=== PATIENT | female | born 1930 | race Caucasian/White ===

== ENCOUNTER 2017-12-22 16:24 | Inpatient (IN) | payer OTHER ==
[~2017-12-22] VITALS: Ht 149.9 cm; Wt 43.9 kg
[~2017-12-22 16:24] MED LIST: ACEBUTOLOL HCL400 MG PO; DITROPAN5 MG PO; LIPITOR10 MG PO; PAXIL10 MG PO; PRINIVIL10 MG PO
[2017-12-22 16:50] LABS: BASOPHIL (%) 0.8 % (0-1); BASOPHIL COUNT 0.1 K/uL (0-0.1); EOSINOPHIL (%) 2.2 % (0-5); EOSINOPHIL COUNT 0.2 K/uL (0-0.3); HEMATOCRIT 40.7 % (36.0-46.0); HEMOGLOBIN 13.4 G/DL (11.9-15.5); IMMATURE GRANULOCYTE (%) 0.2 % (0.0-0.7); LYMPHOCYTE (%) 30.6 % (15-42); LYMPHOCYTE COUNT 2.9 K/uL (1.0-2.8); MCH 30.6 PG (29.0-34.0); MCHC 32.9 G/DL (30.0-36.0); MCV 92.9 FL (83-99); MONOCYTE (%) 7.9 % (3-12); MONOCYTE COUNT 0.8 K/uL (0-0.8); NEUTROPHIL (%) 58.3 % (45-76); NEUTROPHIL COUNT 5.5 K/uL (1.8-6.4); PLATELET COUNT 214 K/uL (156-360); RBC DIS.WIDTH-CV 11.6 % (11.8-14.6); RBC DIS.WIDTH-SD 39.7 % (39-53); RED BLOOD COUNT 4.38 M/uL (3.80-5.20); WHITE BLOOD COUNT 9.5 K/uL (4.1-10.2)
[2017-12-22 16:56] LABS: INTER. NORMALIZED RATIO 1.1
[2017-12-22 17:03] LABS: CHLORIDE 104 mEq/L (99-109); POTASSIUM 3.6 mEq/L (3.7-5.4); SODIUM 141 mEq/L (136-147)
[2017-12-22 17:05] LABS: GLUCOSE 140 mg/dL (70-99)
[2017-12-22 17:09] LABS: GFR ESTIMATE (CALCULATED) 55 mL/min/
[2017-12-22 17:10] LABS: UREA NITROGEN (BUN) 14 mg/dL (9-23)
[2017-12-22] MEDS ORDERED: ADVIL,NUPRIN,M200 MG PO (17:28)
[2017-12-22] MEDS ORDERED: AMLODIPINE BES2.5 MG PO (17:29)
[2017-12-22] MEDS ORDERED: ARICEPT5 MG PO (17:29)
[2017-12-22] MEDS ORDERED: CYANOCOBALAM1000 MCG PO (17:29)
[2017-12-22] MEDS ORDERED: VITAMIN D31000 UNIT PO (17:29)
[2017-12-22] MEDS ORDERED: IRON325 M1 PO (17:29)
[2017-12-22] MEDS ORDERED: XANAX0.25 MG PO (17:29)
[2017-12-22 22:47] VITALS: BP 138/76
[2017-12-23 05:01] VITALS: BP 122/63
[2017-12-23 08:00] VITALS: BP 103/53
[2017-12-23 09:04] VITALS: BP 148/60
[2017-12-23 09:18] VITALS: BP 160/92
[2017-12-23 13:58] LABS: HEMATOCRIT 29.3 % (36.0-46.0); MCH 29.5 PG (29.0-34.0); MCHC 32.1 G/DL (30.0-36.0); MCV 91.8 FL (83-99); PLATELET COUNT 177 K/uL (156-360); RBC DIS.WIDTH-CV 11.8 % (11.8-14.6); RBC DIS.WIDTH-SD 39.8 % (39-53); WHITE BLOOD COUNT 14.3 K/uL (4.1-10.2)
[2017-12-23 13:59] LABS: HEMOGLOBIN 9.4 G/DL (11.9-15.5); RED BLOOD COUNT 3.19 M/uL (3.80-5.20)
[2017-12-23 14:10] LABS: ALBUMIN 3.2 G/DL (3.2-4.8); ALKALINE PHOSPHATASE 47 IU/L (3-129); ALT (GPT) 10 IU/L (3-49); AST (GOT) 21 IU/L (2-34); CHLORIDE 104 MEQ/L (99-109); CREATININE 0.8 MG/DL (0.6-1.3); GFR ESTIMATE (CALCULATED) > 59 mL/min/; GLUCOSE 160 mg/dL (70-99); POTASSIUM 3.9 MEQ/L (3.7-5.4); SODIUM 137 MEQ/L (136-147); TOTAL BILIRUBIN 0.4 MG/DL (0.0-1.0); TOTAL PROTEIN 5.7 G/DL (6.4-8.3); UREA NITROGEN (BUN) 21 mg/dL (9-23)
[2017-12-23 19:41] VITALS: BP 129/54
[2017-12-23 23:34] VITALS: BP 125/56
[2017-12-24 04:29] VITALS: BP 138/58
[2017-12-24 09:02] VITALS: BP 115/56
[2017-12-24 11:49] VITALS: BP 147/63
[2017-12-24 15:07] VITALS: BP 152/57
[2017-12-24 23:20] VITALS: BP 135/58
[2017-12-25] VITALS (12 sets, daily range): BP systolic 11–141; BP diastolic 39–105
[2017-12-25 07:07] LABS: BASOPHIL (%) 0.6 % (0-1); BASOPHIL COUNT 0.1 K/uL (0-0.1); EOSINOPHIL (%) 1.3 % (0-5); EOSINOPHIL COUNT 0.2 K/uL (0-0.3); HEMATOCRIT 20.9 % (36.0-46.0); IMMATURE GRANULOCYTE (%) 0.6 % (0.0-0.7); LYMPHOCYTE (%) 27.5 % (15-42); LYMPHOCYTE COUNT 3.4 K/uL (1.0-2.8); MCH 29.6 PG (29.0-34.0); MCHC 32.1 G/DL (30.0-36.0); MCV 92.5 FL (83-99); MONOCYTE (%) 14.4 % (3-12); MONOCYTE COUNT 1.8 K/uL (0-0.8); NEUTROPHIL (%) 55.6 % (45-76); NEUTROPHIL COUNT 6.9 K/uL (1.8-6.4); NRBC (%) 0.2 /100 WBC (0-0); PLATELET COUNT 164 K/uL (156-360); RBC DIS.WIDTH-CV 12.1 % (11.8-14.6); RBC DIS.WIDTH-SD 41.2 % (39-53); WHITE BLOOD COUNT 12.4 K/uL (4.1-10.2)
[2017-12-25 07:10] LABS: HEMOGLOBIN 6.7 G/DL (11.9-15.5); RED BLOOD COUNT 2.26 M/uL (3.80-5.20)
[2017-12-25 07:25] LABS: CHLORIDE 101 MEQ/L (99-109); CREATININE 0.8 MG/DL (0.6-1.3); GFR ESTIMATE (CALCULATED) > 59 mL/min/; POTASSIUM 4.2 MEQ/L (3.7-5.4); SODIUM 138 MEQ/L (136-147); UREA NITROGEN (BUN) 22 mg/dL (9-23)
[2017-12-25 07:26] LABS: GLUCOSE 111 mg/dL (70-99)
[2017-12-26 07:12] LABS: HEMATOCRIT 32.2 % (36.0-46.0)
[2017-12-26 07:14] LABS: HEMOGLOBIN 10.9 G/DL (11.9-15.5)
[2017-12-26 08:17] VITALS: BP 150/66
[2017-12-26 08:17] LABS: MCH 29.8 PG (29.0-34.0); MCHC 33.4 G/DL (30.0-36.0); NRBC (%) 0.5 /100 WBC (0-0); PLATELET COUNT 168 K/uL (156-360); RBC DIS.WIDTH-CV 13.2 % (11.8-14.6); RBC DIS.WIDTH-SD 43.2 % (39-53); WHITE BLOOD COUNT 11.8 K/uL (4.1-10.2)
[2017-12-26 08:21] LABS: RED BLOOD COUNT 3.66 M/uL (3.80-5.20)
[2017-12-26] MEDS ORDERED: XANAX0.25 MG PO (10:46)
[2017-12-26] MEDS ORDERED: COLACE100 MG PO (10:46)
[2017-12-26] MEDS ORDERED: PERCOCET 5/31 TABLET PO (10:46)
[2017-12-26] MEDS ORDERED: ASPIRIN325 MG PO (11:26)
== END 2017-12-26 15:29 | DRG 481 ==
LOC: EME 16:24 → EDOF 20:27 → 3EAST 20:27 → ENRESERV 20:28 → 3EAST 22:23
PROVIDERS: Emergency Medicine; Internal Medicine; Orthopaedic Surgery
PROC: 0QS634Z Reposition Right Upper Femur with Internal Fixation Device, Percutaneous Approach (ICD-10-PCS; principal; 2017-12-23)
PROC: 30233N1 Transfusion of Nonautologous Red Blood Cells into Peripheral Vein, Percutaneous Approach (ICD-10-PCS; 2017-12-25)
DX: S72.141A Displaced intertrochanteric fracture of right femur, initial encounter for closed fracture (principal); W18.30XA Fall on same level, unspecified, initial encounter; D62 Acute posthemorrhagic anemia; I10 Essential (primary) hypertension; F03.90 Unspecified dementia, unspecified severity, without behavioral disturbance, psychotic disturbance, mood disturbance, and anxiety; F41.9 Anxiety disorder, unspecified; F32.9 Major depressive disorder, single episode, unspecified; E78.5 Hyperlipidemia, unspecified; Z66 Do not resuscitate; Z85.3 Personal history of malignant neoplasm of breast
CPT/HCPCS: 71045; 73502; 76000; 80048; 80053; 81003; 82948; 85014; 85018; 85025; 85027; 85610; 86850; 86900; 86901; 86920; 93005; 97530 GP; 99281; 99285; C1713; J0330; J0690; J1100; J1170; J1644; J1885; J2270; J2405; J2710; J3010; J7643; P9016